=== PATIENT | female | born 1965 | race African-American/Black ===

== ENCOUNTER 2018-09-07 21:17 | Emergency (ER) | payer MEDICAID ==
[~2018-09-07] VITALS: Ht 157.5 cm; Wt 107.0 kg
[~2018-09-07 21:17] MED LIST: ASPI-1158; HCTZ; METFORMIN
[2018-09-07 21:39] VITALS: BP 177/68
== END 2018-09-08 | disposition left against medical advice (07) ==
LOC: ER 21:17
DX: R42 Dizziness and giddiness (principal); Z53.21 Procedure and treatment not carried out due to patient leaving prior to being seen by health care provider